=== PATIENT | female | born 1945 | race African-American/Black ===

== ENCOUNTER 2017-08-20 10:35 | Observation (INO) | payer OTHER, BC ==
--- NOTE | 2017-08-20 10:49 | PDOC ---
History of Present Illness - General Chief Complaint: Pain Stated Complaint: CHEST PAIN,LT SIDE PAIN Time Seen by Provider: 08/20/17 10:49 - History of Present Illness Initial Comments: 71 year old female with PMH of CAD (s/p stent a few years prior), HTN, and IDDM presenting with left sided chest pain for the past 2 weeks that was sudden onset after being picked up from the floor at a strange angle. She hasn't tried Tylenol or Advil for the pain but it was recalcitrant to alcohol soaks and minerla oil rubs. The pain is worse with movement with her left shoulder and it is very tender to palpation along with her left sternum. She saw Dr. Ferrer 1.5 weeks prior and he believed the pain was MSK related. Denies fevers, chills , nausea, vomiting, diarrhea, constipation or other symptoms. 08/20/17 11:51 Past History - Past Medical History Allergies/Adverse Reactions: Allergies Allergy/AdvReac Type Severity Reaction Status Date / Time No Known Allergies Allergy Verified 08/20/17 10:41 Home Medications: Ambulatory Orders Aspirin [ASA -] 81 mg PO DAILY 03/02/14 Insulin NPH Hum/Reg Insulin Hm [Humulin 70-30 Vial] 35 unit SQ AM 03/02/14 Losartan Potassium [Cozaar] 12.5 mg PO DAILY 03/02/14 Metformin HCl 1,000 mg PO DAILY 03/02/14 Metoprolol Tartrate [Lopressor -] 25 mg PO DAILY 03/02/14 Anemia: Yes Asthma: No Cancer: No Cardiac Disorders: Yes (MVP) CVA: No COPD: No CHF: No Dementia: No Diabetes: Yes GI Disorders: No Disorders: No HTN: Yes Hypercholesterolemia: Yes Liver Disease: No Seizures: No Thyroid Disease: No - Surgical History Abdominal Surgery: No Appendectomy: No Cardiac Surgery: No Cholecystectomy: No Lung Surgery: No Neurologic Surgery: No Orthopedic Surgery: No - Suicide/Smoking/Psychosocial Hx Smoking History: Never smoked Have you smoked in the past 12 months: No Information on smoking cessation initiated: No Hx Alcohol Use: No Drug/Substance Use Hx: No Substance Use Type: None Hx Substance Use Treatment: No Review of Systems - Review of Systems Constitutional: No: Diaphoresis, Fever, Loss of Appetite HEENTM: No: Eye Pain, Blurred Vision Respiratory: No: Cough, Shortness of Breath Cardiac (ROS): Yes: Chest Pain. No: Irregular Heart Rate, Lightheadedness, Palpitations, Syncope ABD/GI: No: Diarrhea, Nausea, Vomiting : No: Burning, Dysuria, Discharge Musculoskeletal: No: Back Pain, Joint Pain Integumentary: No: Bruising, Lesions, Rash Neurological: No: Headache, Numbness Endocrine: Yes: Excessive Sweating *Physical Exam - Vital Signs Last Vital Signs Temp Pulse Resp BP Pulse Ox 98.2 F 64 18 147/74 100 08/20/17 10:38 08/20/17 10:38 08/20/17 10:38 08/20/17 10:38 08/20/17 10:38 - Physical Exam General Appearance: Yes: Nourished, Appropriately Dressed. No: Apparent Distress HEENT: positive: EOMI, RICCI, Normal ENT Inspection, Normal Voice Neck: positive: Trachea midline, Normal Thyroid, Supple. negative: Tender, Rigid Respiratory/Chest: positive: Chest Tender (Tender right side of sternum to plapationand tender posterior shoulder/ scapula), Lungs Clear, Normal Breath Sounds, Respiratory Distress. negative: Accessory Muscle Use Cardiovascular: positive: Regular Rhythm, Regular Rate Gastrointestinal/Abdominal: positive: Normal Bowel Sounds, Flat, Soft. negative : Tender Musculoskeletal: positive: Normal Inspection (Per above). negative: Decreased Range of Motion Extremity: positive: Normal Capillary Refill, Normal Inspection. negative: Normal Range of Motion (Slightly painful with full abuction and ecternal rotation of right shoulder) Integumentary: positive: Normal Color, Dry, Warm Neurologic: positive: Fully Oriented, Alert, Normal Mood/Affect, Normal Response , Motor Strength 5/5 ED Treatment Course - LABORATORY CBC & Chemistry Diagram: 08/20/17 11:20 08/20/17 11:20 Medical Decision Making - Medical Decision Making 71 year old female with left shoulder pain and many cardiac risk factors. Likely MSK in etiology, however, the chronicty ( 2 weeks in duration) and cardiac risk factors make cardiac pathology (unstable vs. stable angina) more concerning. EKG NSR, T wave changes (biphasic in atnerior leads but no STEs), and T waves globally flattened compared to previous EKG but that EKG was poor quality (in SVT at the time). 08/20/17 16:04 *DC/Admit/Observation/Transfer Diagnosis at time of Disposition: Chest pain Qualifiers: Chest pain type: unspecified Qualified Code(s): R07.9 - Chest pain, unspecified - Discharge Dispostion Admit: Yes - Referrals - Patient Instructions - Post Discharge Activity
--- NOTE | 2017-08-20 11:08 | PDOC ---
History of Present Illness - General Chief Complaint: Pain Stated Complaint: CHEST PAIN,LT SIDE PAIN Past History - Past Medical History Allergies/Adverse Reactions: Allergies Allergy/AdvReac Type Severity Reaction Status Date / Time No Known Allergies Allergy Verified 08/20/17 10:41 Home Medications: Ambulatory Orders Aspirin [ASA -] 81 mg PO DAILY 03/02/14 Insulin NPH Hum/Reg Insulin Hm [Humulin 70-30 Vial] 35 unit SQ AM 03/02/14 Losartan Potassium [Cozaar] 12.5 mg PO DAILY 03/02/14 Metformin HCl 850 mg PO DAILY 03/02/14 Metoprolol Tartrate [Lopressor -] 25 mg PO DAILY 03/02/14 Anemia: Yes Asthma: No Cancer: No Cardiac Disorders: Yes (MVP) CVA: No COPD: No CHF: No Dementia: No Diabetes: Yes GI Disorders: No Disorders: No HTN: Yes Hypercholesterolemia: Yes Liver Disease: No Seizures: No Thyroid Disease: No - Surgical History Abdominal Surgery: No Appendectomy: No Cardiac Surgery: No Cholecystectomy: No Lung Surgery: No Neurologic Surgery: No Orthopedic Surgery: No - Suicide/Smoking/Psychosocial Hx Smoking History: Never smoked Have you smoked in the past 12 months: No Information on smoking cessation initiated: No Hx Alcohol Use: No Drug/Substance Use Hx: No Substance Use Type: None Hx Substance Use Treatment: No *Physical Exam - Vital Signs Last Vital Signs Temp Pulse Resp BP Pulse Ox 98.2 F 64 18 147/74 100 08/20/17 10:38 08/20/17 10:38 08/20/17 10:38 08/20/17 10:38 08/20/17 10:38 Heart Score/ECG Review #1 08/20/17 11:07 Twelve-lead EKG was performed and reviewed by me. Normal sinus rhythm, rate 65. Normal axis and intervals. No ST elevations. Compared to previous EKG from February 2014, patient is no longer in SVT. *DC/Admit/Observation/Transfer - Referrals Referrals: Maurice Gallo MD [Primary Care Provider] - - Patient Instructions - Post Discharge Activity
--- NOTE | 2017-08-20 11:09 | PDOC ---
Attending Attestation - Resident Resident Name: Lilliam Justice - ED Attending Attestation I have performed the following: I have examined & evaluated the patient, The case was reviewed & discussed with the resident, I agree w/resident's findings & plan, Exceptions are as noted - Medical Decision Making 08/20/17 13:00 71-year-old female with a history of CAD status post stent presents emergency Department with 2 weeks of progressive left-sided chest and shoulder pain. Vitals unremarkable. Exam with reproducible pain. EKG is nonischemic. Differential includes acute coronary syndrome versus angina versus musculoskeletal pain. Given patient is high risk chest pain, and pain has not improved after 2 weeks, will admit to observation for serial troponins, telemetry and cardiac workup. Patient is in agreement with plan. <Uriel Ordaz - Last Filed: 08/20/17 13:29> - HPI HPI: 08/20/17 13:42 The patient is a 71 year old female with past medical history of hypertension, CAD s/p stent placement 2012, and IDDM who presents to the ED with complaints of left sternal chest pain and left shoulder pain that began two weeks ago. 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 Since then she has been experiencing pain in her chest and shoulder which has worsened since. She reports the pain is worse with movement. The patient was evaluated by her PCP and boat tester in the past week, both of which said her symptoms are non-cardiac. The patient has an ortho appointment today but wanted to come in for a cardiac workup. She denies any associated shortness of breath, diaphoresis, lightheadedness, or lower extremity swelling. Denies any recent fevers, chills, or illness. - Physicial Exam PE: 08/20/17 13:42 agree with resident exam - Medical Decision Making 08/20/17 13:43 Documentation prepared by Ava Guido, acting as medical imaging tech for Uriel Ordaz MD. <Ava Guido - Last Filed: 08/20/17 13:43> Heart Score/ECG Review #1 08/20/17 11:09 Twelve-lead EKG was performed and reviewed by me. Normal sinus rhythm, rate 65. Normal axis and intervals. No ST elevations. Compared to previous EKG from February 2014, patient is no longer in SVT. <Uriel Ordaz - Last Filed: 08/20/17 13:29>
[2017-08-20 11:26] LABS: BASO % 0.7 % (0-2.0); EOS % 0.8 % (0-4.5); HEMATOCRIT 34.1 % (32.4-45.2); HEMOGLOBIN 11.3 GM/dL (10.7-15.3); MCH 31.8 pg (25.7-33.7); MCHC 33.1 g/dl (32.0-36.0); MEAN CELL VOLUME 96.3 fl (80-96); MEAN PLT VOLUME 9.3 fl (7.5-11.1); MONO % 10.5 % (3.8-10.2); PLATELET COUNT 174 K/MM3 (134-434); RBC 3.54 M/mm3 (3.60-5.2); RDW 14.3 % (11.6-15.6); WHITE BLOOD COUNT 4.2 K/mm3 (4.0-10.0)
[2017-08-20 11:56] LABS: ALBUMIN 3.4 g/dl (3.4-5.0); ANION GAP 9 (8-16); BILIRUBIN,TOTAL 0.4 mg/dL (0.2-1.0); BLOOD UREA NITROGEN 10 mg/dL (7-18); CALCIUM 8.6 mg/dL (8.5-10.1); CHLORIDE 104 mmol/L (98-107); CO2 27 mmol/L (21-32); CREATININE 0.7 mg/dL (0.55-1.02); GLUCOSE,RANDOM 114 mg/dL (74-106); POTASSIUM 3.9 mmol/L (3.5-5.1); SGOT/AST 27 U/L (15-37); SGPT/ALT 18 U/L (12-78); SODIUM 140 mmol/L (136-145)
[2017-08-20 11:59] LABS: ALK PHOS 66 U/L (45-117); TOT PROT 7.7 g/dl (6.4-8.2)
[2017-08-20] MEDS ORDERED: ASPIRIN 81 MG CHEWABLE TABLETS ONE (13:21)
[2017-08-20] MEDS: ASPIRIN 81 MG CHEWABLE TABLETS PO SCH (13:28)
[2017-08-20] MEDS: INSULIN SLIDING SCALE (NOVOLOG) 1 VIAL SQ SCH (17:20)
--- NOTE | 2017-08-20 17:38 | HP ---
Admitting History and Physical - Primary Care Physician PCP: Maurice Gallo - Admission Chief Complaint: left arm pain and chest pain History of Present Illness: 71 yrs old female came to ER for chest pain and left arm pain She has been feeling left arm pain for about 2 weeks now , worse with movement- - she attributes this to being picked up from the floor by her when she had a mechanical fall and thinks he picked her up at a strange angle. She went to see Section Chief and PMD regarding this , felt it was musculoskeletal pain. She started experiencing left chest wall pain around the same time- worse with coughing Today felt left arm pain move from shoulder to hand. no diaphoresis no dizziness , or SOB Stress test was done 1 year ago History Source: Patient Limitations to Obtaining History: No Limitations - Past Medical History Cardiovascular: Yes: HTN, Hyperlipdemia ...: No Endocrine: Yes: Diabetes Mellitus - Smoking History Smoking history: Never smoked Have you smoked in the past 12 months: No - Alcohol/Substance Use Hx Alcohol Use: No Home Medications - Allergies Allergies/Adverse Reactions: Allergies Allergy/AdvReac Type Severity Reaction Status Date / Time No Known Allergies Allergy Verified 08/20/17 10:41 - Home Medications Home Medications: Ambulatory Orders Aspirin [ASA -] 81 mg PO DAILY 03/02/14 Insulin NPH Hum/Reg Insulin Hm [Humulin 70-30 Vial] 35 unit SQ AM 03/02/14 Losartan Potassium [Cozaar] 12.5 mg PO DAILY 03/02/14 Metformin HCl 1,000 mg PO DAILY 03/02/14 Metoprolol Tartrate [Lopressor -] 25 mg PO DAILY 03/02/14 Review of Systems - Review of Systems Constitutional: denies: Chills, Fever Cardiovascular: reports: Chest Pain Musculoskeletal: reports: Extremity Pain Physical Examination Vital Signs: Vital Signs Temperature 98.2 F 08/20/17 10:38 Pulse Rate 64 08/20/17 10:38 Respiratory Rate 18 08/20/17 10:38 Blood Pressure 147/74 08/20/17 10:38 O2 Sat by Pulse Oximetry (%) 100 08/20/17 10:38 Constitutional: Yes: No Distress, Calm Cardiovascular: Yes: Regular Rate and Rhythm Respiratory: Yes: CTA Bilaterally Gastrointestinal: Yes: Normal Bowel Sounds, Soft. No: Tenderness Musculoskeletal: Yes: Muscle Pain, Other (left arm - pain) Edema: No Labs: CBC, BMP 08/20/17 11:20 08/20/17 11:20 Imaging - Results Chest X-ray: Image Reviewed EKG: Image Reviewed Problem List - Problems (1) Arm pain Code(s): M79.603 - PAIN IN ARM, UNSPECIFIED (2) HTN (hypertension) Code(s): I10 - ESSENTIAL (PRIMARY) HYPERTENSION (3) Diabetes mellitus Code(s): E11.9 - TYPE 2 DIABETES MELLITUS WITHOUT COMPLICATIONS (4) Chest pain Code(s): R07.9 - CHEST PAIN, UNSPECIFIED Qualifiers: Chest pain type: unspecified Qualified Code(s): R07.9 - Chest pain, unspecified Assessment/Plan PLAN check cardiac enzymes Cardiology eval possibly related to ? upper left back pain, ?pinched nerve pt is tender left upper back- has been painful since the fall may need physical therapy outpt Ortho eval if ACS ruled out
--- NOTE | 2017-08-20 17:50 | CON.CARD ---
Cardiology Consult (text) - Consultation Consultation Note: CC: cp 71 year old female with past medical history of hypertension, HL, chronic palps and IDDM who presents with CP Symptoms for the past 2 weeks. Instigating event was as follows. Her was painting and she was on the floor helping remove painting tape. She couldn' t get up on her own and her wrapped his arms around her torso and under her arms and pulled her up. As he did this she felt an incredible pain in her left chest and shoulder. Since then she has had ongoing pain in that area. Waxing and waning in intensity but constant. No associated sx's'. No sob, orthopnea, pnd, palps, dizziness, le edema, claudication, bleeding no f/c/s, n/v/d, cough, congestion, rash, visual distubances. pmhx/pshx: per hpi family hx: no heart disease social hx: former smoker ros: per hpi Ambulatory Orders Aspirin [ASA -] 81 mg PO DAILY 03/02/14 Insulin NPH Hum/Reg Insulin Hm [Humulin 70-30 Vial] 35 unit SQ AM 03/02/14 Losartan Potassium [Cozaar] 12.5 mg PO DAILY 03/02/14 Metformin HCl 1,000 mg PO DAILY 03/02/14 Metoprolol Tartrate [Lopressor -] 25 mg PO DAILY 03/02/14 Current Medications Aspirin (Asa -) 81 mg PO DAILY [facility] Last Admin: 08/20/17 13:28 Dose: 81 mg Insulin Aspart (Novolog Vial Sliding Scale -) 1 vial SQ TIDAC [facility] PRN Reason: Protocol Last Admin: 08/20/17 17:20 Dose: Not Given Insulin Aspart (Novolog Mix 70/30 Vial) 35 units SQ AM [facility] Losartan Potassium (Cozaar -) 12.5 mg PO DAILY [facility] Metformin HCl (Glucophage -) 1,000 mg PO ACBK [facility] Metoprolol Tartrate (Lopressor -) 25 mg PO DAILY [facility] Vital Signs - 24 hr 08/20/17 10:38 Temperature 98.2 F Pulse Rate 64 Respiratory 18 Rate Blood Pressure 147/74 O2 Sat by Pulse 100 Oximetry (%) Intake & Output 08/18/17 08/19/17 08/20/17 08/21/17 07:59 07:59 07:59 07:59 Weight 230 lb nad, calm jvd flat, neck supple ctab, nl effort + ttp of left chest wall. rrr nl s1, s2 no mrg + bs soft nt nd ext without e/c/c + dp/pt aaox3 no jaundice, diaphoresis. CBC, BMP 08/20/17 11:20 08/20/17 11:20 Laboratory Tests 08/20/17 11:20 Creatine Kinase 158 Creatine Kinase Index 0.7 CK-MB (CK-2) 1.185 Troponin I < 0.02 Albumin 3.4 ekg: sr, no ischemic changes tele: sr echo 12/2016: nl lv/rv, no sig valve path, nl rvsp cath 10/2014: non obs dz (only mild plad dz) 71 year old female with past medical history of hypertension, HL, chronic palps and IDDM who presents with CP CP - triggered/started after injury. Reproducible to palpation. Consistent with MSK etiology. - Low suspicion for cardiac cause, but would r/o. con't rosalba. echo report pending. HTN/HL/palps - con't outpatient regimen as doing. Note, patient is additionally on statin ( lovastatin 20 mg/day) --> would include in d/c meds. Low suspicion for CAD. If echo report wnl, no need for inpatient stress testing and stable for d/c from CV perspective
[2017-08-20 18:19] VITALS: BMI 31.1
[2017-08-21] MEDS: INSULIN SLIDING SCALE (NOVOLOG) 1 VIAL SQ SCH ×2 (06:04→11:03)
[2017-08-21] MEDS ORDERED: metFORMIN HCL 500 MG TABLET (FP) PO SCH (07:00)
[2017-08-21] MEDS ORDERED: PATIENT'S OWN MEDICATION (NON-FORMULARY) (Insulin Nph Hum/Reg Insulin Hm [Humulin 70-30 Vi SQ SCH (07:00)
[2017-08-21] MEDS ORDERED: INSULIN (NOVOLOG MIX 70/30) 100 UNITS/ML MDV SQ SCH (07:00)
[2017-08-21] MEDS: ASPIRIN 81 MG CHEWABLE TABLETS PO SCH (09:35)
[2017-08-21] MEDS ORDERED: METOPROLOL TARTRATE 25 MG TABLET (FP) PO SCH (10:00)
[2017-08-21] MEDS ORDERED: LOSARTAN POTASSIUM 25 MG TABLET PO SCH (10:00)
[2017-08-21 10:03] VITALS: BP 159/69; PULSE 60; TEMP 98.3
--- NOTE | 2017-08-21 11:35 | PN ---
Progress Note (short form) - Note Progress Note: s: same msk cp, no palps sob dizzy o: Vital Signs Period Temp Pulse Resp BP Sys/Newell Pulse Ox Last 24 Hr 98.3 F-98.8 F 47-64 18-20 124-159/61-81 98-99 nad, calm jvd flat, neck supple ctab, nl effort + ttp of left chest wall. rrr nl s1, s2 no mrg + bs soft nt nd ext without e/c/c aaox3 no jaundice, diaphoresis. Current Medications Generic Name Dose Route Start Last Admin Trade Name Freq PRN Reason Stop Dose Admin Aspirin 81 mg 08/20/17 12:45 08/21/17 09:35 Asa - PO 81 mg DAILY [facility] Administration Insulin Aspart 1 vial 08/20/17 16:30 08/21/17 11:03 Novolog Vial Sliding Scale - SQ Not Given TIDAC [facility] Protocol Insulin Aspart 35 units 08/21/17 07:00 08/21/17 06:02 Novolog Mix 70/30 Vial SQ 35 units AM [facility] Administration Losartan Potassium 12.5 mg 08/21/17 10:00 08/21/17 09:35 Cozaar - PO 12.5 mg DAILY [facility] Administration Metformin HCl 1,000 mg 08/21/17 07:00 08/21/17 06:02 Glucophage - PO 1,000 mg ACBK [facility] Administration Metoprolol Tartrate 25 mg 08/21/17 10:00 08/21/17 09:35 Lopressor - PO 25 mg DAILY [facility] Administration Laboratory Last Values WBC 4.2 K/mm3 (4.0-10.0) 08/20/17 11:20 RBC 3.54 M/mm3 (3.60-5.2) L 08/20/17 11:20 Hgb 11.3 GM/dL (10.7-15.3) 08/20/17 11:20 Hct 34.1 % (32.4-45.2) 08/20/17 11:20 MCV 96.3 fl (80-96) H 08/20/17 11:20 MCH 31.8 pg (25.7-33.7) 08/20/17 11:20 MCHC 33.1 g/dl (32.0-36.0) 08/20/17 11:20 RDW 14.3 % (11.6-15.6) 08/20/17 11:20 Plt Count 174 K/MM3 (134-434) 08/20/17 11:20 MPV 9.3 fl (7.5-11.1) 08/20/17 11:20 Neutrophils % 48.0 % (42.8-82.8) 08/20/17 11:20 Lymphocytes % 40.0 % (8-40) 08/20/17 11:20 Monocytes % 10.5 % (3.8-10.2) H 08/20/17 11:20 Eosinophils % 0.8 % (0-4.5) 08/20/17 11:20 Basophils % 0.7 % (0-2.0) 08/20/17 11:20 Sodium 140 mmol/L (136-145) 08/20/17 11:20 Potassium 3.9 mmol/L (3.5-5.1) 08/20/17 11:20 Chloride 104 mmol/L (98-107) 08/20/17 11:20 Carbon Dioxide 27 mmol/L (21-32) 08/20/17 11:20 Anion Gap 9 (8-16) 08/20/17 11:20 BUN 10 mg/dL (7-18) 08/20/17 11:20 Creatinine 0.7 mg/dL (0.55-1.02) 08/20/17 11:20 Creat Clearance w eGFR > 60 (>60) 08/20/17 11:20 POC Glucometer 90 UNITS (80-120) 08/21/17 11:02 Random Glucose 114 mg/dL (74-106) H 08/20/17 11:20 Calcium 8.6 mg/dL (8.5-10.1) 08/20/17 11:20 Total Bilirubin 0.4 mg/dL (0.2-1.0) D 08/20/17 11:20 AST 27 U/L (15-37) 08/20/17 11:20 ALT 18 U/L (12-78) 08/20/17 11:20 Alkaline Phosphatase 66 U/L (45-117) 08/20/17 11:20 Creatine Kinase 110 IU/L (26-192) 08/21/17 01:45 Creatine Kinase Index 0.7 % (0.0-5.0) 08/20/17 11:20 CK-MB (CK-2) 1.185 ng/mL (0.5-3.6) 08/20/17 11:20 Troponin I < 0.02 ng/ml (0.00-0.05) 08/21/17 01:45 Total Protein 7.7 g/dl (6.4-8.2) 08/20/17 11:20 Albumin 3.4 g/dl (3.4-5.0) 08/20/17 11:20 ekg: sr, no ischemic changes tele: sr/sb echo 08/2017: tds; nl lv/rv, no sig valve path echo 12/2016: nl lv/rv, no sig valve path, nl rvsp cath 10/2014: non obs dz (only mild plad dz) a/p: 71 year old female with past medical history of hypertension, HL, chronic palps and IDDM who presents with CP CP - triggered/started after injury. Reproducible to palpation. Consistent with MSK etiology. - No suspicion for cardiac cause, no signs acs, echo unremarkable. HTN/HL/palps - con't outpatient regimen as doing. Note, patient is additionally on statin ( lovastatin 20 mg/day) --> would include in d/c meds. ok for dc from cardiac pov
--- NOTE | 2017-08-21 11:45 | DS ---
Physical Examination Vital Signs: Vital Signs Temperature 98.3 F 08/21/17 09:00 Pulse Rate 60 08/21/17 09:00 Respiratory Rate 18 08/21/17 09:00 Blood Pressure 159/69 08/21/17 09:00 O2 Sat by Pulse Oximetry (%) 99 08/21/17 09:00 Findings/Remarks: feels well. no complains mi ruled out all f/u noted at bedside Constitutional: Yes: No Distress, Calm Eyes: Yes: Conjunctiva Clear Neck: Yes: Supple Cardiovascular: Yes: Regular Rate and Rhythm Respiratory: Yes: CTA Bilaterally Gastrointestinal: Yes: Soft Edema: No Neurological: Yes: Alert Psychiatric: Yes: Alert Labs: CBC, BMP 08/20/17 11:20 08/20/17 11:20 Discharge Summary Reason For Visit: CHEST PAIN Current Active Problems Arm pain (Acute) Chest pain (Acute) Diabetes mellitus (Acute) HTN (hypertension) (Acute) Hospital Course: admitted for cp mi ruled out. likely muscular will d/c home today. discussed with pt/ pts in detail f/u as out pt they agree with plan. meds reconcilled discussed with nursing staff d/c time 35 min in examining/ reviewing data/ discussing and coordating care Condition: Stable - Instructions Referrals: Maurice Gallo MD [Primary Care Provider] - Disposition: HOME - Home Medications Comprehensive Discharge Medication List: Ambulatory Orders Aspirin [ASA -] 81 mg PO DAILY 03/02/14 Insulin NPH Hum/Reg Insulin Hm [Humulin 70-30 Vial] 35 unit SQ AM 03/02/14 Losartan Potassium [Cozaar] 12.5 mg PO DAILY 03/02/14 Metformin HCl 1,000 mg PO DAILY 03/02/14 Insulin Sliding Scale [Novolog Vial Sliding Scale -] 1 vial SQ TIDAC units 11/02
--- NOTE | 2017-08-25 13:36 | EKG ---
Test Reason : Blood Pressure : / mmHG Vent. Rate : 065 BPM Atrial Rate : 065 BPM P-R Int : 142 ms QRS Dur : 086 ms QT Int : 414 ms P-R-T Axes : 066 062 048 degrees QTc Int : 430 ms NORMAL SINUS RHYTHM NONSPECIFIC T WAVE ABNORMALITY ABNORMAL ECG WHEN COMPARED WITH ECG OF 02-MAR-2014 11:17, VENT. RATE HAS DECREASED BY [address] NO LONGER DEPRESSED IN ANTEROLATERAL LEADS NONSPECIFIC T WAVE ABNORMALITY HAS REPLACED INVERTED T WAVES IN INFERIOR LEADS NONSPECIFIC T WAVE ABNORMALITY HAS REPLACED INVERTED T WAVES IN ANTEROLATERAL LEADS Confirmed by MD Ortiz Daniel ([id number]) on 08/25/2017 1:35:59 PM Referred By: Confirmed By:Robert Ortiz MD
== END 2017-08-21 13:23 | disposition home or self-care (01) ==
LOC: JER 10:35 → JERBED 12:33 → J4W 15:54
PROVIDERS: ADMIT Internal Medicine; ATTEND Internal Medicine
PROC: 3E013VG Introduction of Insulin into Subcutaneous Tissue, Percutaneous Approach (ICD-10-PCS; principal; 2017-08-20)
DX: R07.89 Other chest pain (principal); M79.602 Pain in left arm; I10 Essential (primary) hypertension; I25.10 Atherosclerotic heart disease of native coronary artery without angina pectoris; I34.1 Nonrheumatic mitral (valve) prolapse; E11.9 Type 2 diabetes mellitus without complications; E78.5 Hyperlipidemia, unspecified; D64.9 Anemia, unspecified; R00.2 Palpitations; Z95.5 Presence of coronary angioplasty implant and graft; Z79.4 Long term (current) use of insulin; Z79.82 Long term (current) use of aspirin; Z79.84 Long term (current) use of oral hypoglycemic drugs
CPT/HCPCS: 36415; 71046-TC-FY; 80053; 82550; 82553; 82962; 84484; 85025; 93005; 93010; 93306-TC; 96372; 99284-25; G0378

== ENCOUNTER 2021-12-30 08:10 | Emergency (ER) | payer OTHER, BC ==
[2021-12-30 08:22] VITALS: TEMP 97.6; BMI 33.5
[2021-12-30] MEDS ORDERED: ACETAMINOPHEN 1000 MG/100 ML BAG IVPB ONE (09:59)
[2021-12-30] MEDS ORDERED: SODIUM CHLORIDE 1,000 ML IV STA (09:59)
[2021-12-30] MEDS ORDERED: ACETAMINOPHEN INJECTION 100 ML IVPB ONE (10:01)
[2021-12-30 10:43] LABS: BASO % 0.6 % (0-2.0); EOS % 0.2 % (0-4.5); HEMATOCRIT 35.2 % (32.4-45.2); HEMOGLOBIN 11.5 GM/dL (10.7-15.3); LYMPH % 32.6 % (8-40); MCHC 32.7 g/dl (32.0-36.0); MEAN CELL VOLUME 94.8 fl (80-96); MEAN PLT VOLUME 9.5 fl (7.5-11.1); MONO % 8.9 % (3.8-10.2); NEUT % 57.7 % (42.8-82.8); PLATELET COUNT 178 10^3/uL (134-434); RBC 3.71 M/mm3 (3.60-5.2); RDW 14.4 % (11.6-15.6); WHITE BLOOD COUNT 5.3 K/mm3 (4.0-10.0)
[2021-12-30 10:49] LABS: INR 1.1 (0.83-1.09); PROTHROMBIN TIME (PATIENT) 12.7 SEC (9.7-13.0)
[2021-12-30 11:10] LABS: CALCIUM 8.9 mg/dL (8.5-10.1)
[2021-12-30 11:11] LABS: ALBUMIN 3.7 g/dl (3.4-5.0); BLOOD UREA NITROGEN 9.5 mg/dL (7-18)
[2021-12-30 11:14] LABS: CREATININE 0.6 mg/dL (0.55-1.3)
[2021-12-30 11:16] LABS: BILIRUBIN,TOTAL 0.5 mg/dL (0.2-1); TOT PROT 8.3 g/dl (6.4-8.2)
[2021-12-30 11:20] LABS: EPI CELLS 27 /uL (0-25.1); HYALINE CASTS 0 /uL (0-3.1); PH,URINE 6.5 (5.0-8.0); URINE APPEARANCE CLEAR; URINE BACTERIA 67 /uL (0-1359); URINE BILIRUBIN NEGATIVE (NEGATIVE); URINE COLOR YELLOW; URINE GLUCOSE (UA) NEGATIVE (NEGATIVE); URINE KETONE NEGATIVE (NEGATIVE); URINE LEUK ESTERASE 2+ (NEGATIVE); URINE NITRITE NEGATIVE (NEGATIVE); URINE PROTEIN NEGATIVE (NEGATIVE); URINE RBC 5 /uL (0-23.9); URINE UROBILINOGEN 0.2 mg/dL (0.2-1.0); URINE WBC 40 /uL (0-25.8)
[2021-12-30 14:38] VITALS: BP 155/58; PULSE 57; RESP 18
== END 2021-12-30 14:41 | disposition home or self-care (01) ==
LOC: JER 08:10
PROC: 3E033NZ Introduction of Analgesics, Hypnotics, Sedatives into Peripheral Vein, Percutaneous Approach (ICD-10-PCS; principal; 2021-12-30)
PROC: 3E0337Z Introduction of Electrolytic and Water Balance Substance into Peripheral Vein, Percutaneous Approach (ICD-10-PCS; 2021-12-30)
DX: R10.32 Left lower quadrant pain (principal); M54.32 Sciatica, left side
CPT/HCPCS: 36415; 74177-TC; 80053; 81003; 82962; 85025; 85610; 87086; 99285-25; Q9967

== ENCOUNTER 2023-04-07 13:41 | Emergency (ER) | payer OTHER, BC ==
[2023-04-07 13:54] VITALS: RESP 18; TEMP 98.7; BMI 32.8
[2023-04-07] MEDS ORDERED: ACETAMINOPHEN 325 MG TABLET (FP) PO ONE (14:55)
[2023-04-07] MEDS ORDERED: ACETAMINOPHEN 325 MG TABLET (FP) ONE (15:19)
[2023-04-07 15:42] VITALS: BP 147/75; PULSE 53
== END 2023-04-07 17:15 | disposition home or self-care (01) ==
LOC: JER 13:41
DX: S46.912A Strain of unspecified muscle, fascia and tendon at shoulder and upper arm level, left arm, initial encounter (principal); M79.602 Pain in left arm; X50.9XXA Other and unspecified overexertion or strenuous movements or postures, initial encounter; Y93.89 Activity, other specified; Y92.9 Unspecified place or not applicable
CPT/HCPCS: 93005; 93010; 99283-25